=== PATIENT | male | born 1980 | race Caucasian/White ===

== ENCOUNTER 2016-12-16 20:20 | Inpatient (IN) | payer BC ==
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
[2016-12-17] MEDS ORDERED: ACETAMINOPHEN TAB 325 MG TAB PO PRN (01:31)
[2016-12-17] MEDS ORDERED: MAGNESIUM HYDROXIDE 2,400 MG/10 ML CUP PO PRN (01:31)
[2016-12-17] MEDS ORDERED: LORazepam 1 MG TAB PO PRN ×2 (01:31→01:33)
[2016-12-17] MEDS ORDERED: MAG HYDROX/AL HYDROX/SIMETH 30 ML CUP PO PRN (01:31)
[2016-12-17] MEDS ORDERED: ZIPRASIDONE 20 MG VIAL IM PRN (01:31)
[2016-12-17 02:01] VITALS: BMI 23.3
--- NOTE | 2016-12-17 14:41 | P.MDCNMH ---
History of Present Illness H&P Date: 12/17/16 Patient was not available for evaluation today. We will retry for tomorrow. Past Medical History Past Medical History: No Reported History History of Any Multi-Drug Resistant Organisms: None Reported Past Surgical History: No Surgical Hx Reported Smoking Status: Never smoker Medications and Allergies Home Medications Medication Instructions Recorded Confirmed Type Citalopram Hydrobromide [CeleXA] 20 mg PO DAILY 12/16/16 12/17/16 History Allergies Allergy/AdvReac Type Severity Reaction Status Date / Time codeine AdvReac Nausea & Verified 12/17/16 02:01 Vomiting Physical Exam Vitals: Vital Signs Temp Pulse Pulse Resp BP BP Pulse Ox 12/17/16 01:49 97.7 F 98 16 126/77 12/17/16 00:26 97.9 F 68 16 118/68 99 12/16/16 20:28 98.5 F 118 H 18 125/72 98 Intake and Output 12/16/16 12/17/16 12/17/16 22:59 06:59 14:59 Other: Weight 79.379 kg 78 kg Gen: This is a [ ] HEENT: Head is atraumatic, normocephalic. Pupils equal, round. Sclerae is anicteric. NECK: Supple. No JVD. No lymphadenopathy. No thyromegaly. LUNGS: Clear to auscultation. No wheezes or rhonchi. No intercostal retractions. HEART: Regular rate and rhythm. No murmur. ABDOMEN: Soft. Bowel sounds are present. No masses. No tenderness. EXTREMITIES: No pedal edema. No calf tenderness. NEUROLOGICAL: Patient is awake, alert and oriented x3. Cranial nerves 2 through 12 are grossly intact. Cranial Nerve Examination - Cranial Nerves Cranial Nerve II- Optic: Intact Cranial Nerve III- Oculomotor: Intact Cranial Nerve IV- Trochlear: Intact Cranial Nerve V- Trigeminal: Intact Cranial Nerve - Abducens: Intact Cranial Nerve VII- Facial: Intact Cranial Nerve VIII- Auditory: Intact Cranial Nerve IX- Glossopharyngeal: Intact Cranial Nerve X- Vagus: Intact Cranial Nerve XI- Accessory: Intact Cranial Nerve XII- Hypoglossal: Intact Assessment and Plan Plan: 1.[ ]. 2. [ ]. 3. [ ]. 4. [ ]. 5. [ ]. 6. [ ]. 7. [ ]. Impression and plan of care have been directed as dictated by the signing physician. Carol Mobley nurse practitioner acting as scribe for signing physician.
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
[2016-12-17] MEDS ORDERED: MELATONIN 5 MG TABLET PO SCH (21:00)
[2016-12-18 06:32] VITALS: BP 111/58; PULSE 73; RESP 16; TEMP 97.4
[2016-12-18] MEDS ORDERED: FLUoxetine HCL 10 MG CAP PO SCH (09:00)
[2016-12-18 09:15] LABS: Basophils # (A) 0.1 k/uL (0-0.2); Basophils % (A) 1 %; CH 31.7; CHCM 35.4; Eosinophils # (A) 0.3 k/uL (0-0.7); Eosinophils % (A) 4 %; HCT 46.4 % (39.0-53.0); HDW 3.11; HGB 15.7 gm/dL (13.0-17.5); Luc # (Auto) 0.33; Luc % (Auto) 4; Lymphocytes # (A) 2.3 k/uL (1.0-4.8); Lymphocytes % (A) 29 %; MCH 30.5 pg (25.0-35.0); MCHC 33.8 g/dL (31.0-37.0); MCV 90.3 fL (80.0-100.0); Mean Platelet Volume 7.4; Monocytes # (A) 0.4 k/uL (0-1.0); Monocytes % (A) 5 %; Neutrophils # (A) 4.5 k/uL (1.3-7.7); Neutrophils % (A) 57 %; RBC 5.14 m/uL (4.30-5.90); RDW 14.7 % (11.5-15.5); WBC (Perox) 7.44
[2016-12-18 10:05] LABS: ALT 68 U/L (21-72); AST 35 U/L (17-59); Alkaline Phosphatase 111 U/L (38-126); Anion Gap 10 mmol/L; Blood Urea Nitrogen 11 mg/dL (9-20); Calcium 9.2 mg/dL (8.4-10.2); Carbon Dioxide 28 mmol/L (22-30); Chloride 102 mmol/L (98-107); Glucose 83 mg/dL (74-99); Non-African American GFR(MDRD) >60 (>60 ml/min/1.73 sqM); Potassium 4.4 mmol/L (3.5-5.1); Sodium 140 mmol/L (137-145); Total Bilirubin 0.6 mg/dL (0.2-1.3)
--- NOTE | 2016-12-18 11:32 | P.DS ---
Providers Date of admission: 12/17/16 00:50 Expected date of discharge: 12/18/16 Attending physician: Luz Maria Martinez MD Consults: 12/17/16 01:31 Consult Physician Routine Consulting Provider: Ivan Marquez Reason/Comments: h and p, eval and tx, r/o metabolic disorder Do you want consulting provider notified?: Yes, Notify in am Primary care physician: Sherwin Mcgowan [place] Hospital Course: Discharge Diagnoses: Major depressive disorder, single episode moderate severity Reason for Admission: Patient is a 36-year-old male who was brought to the hospital on a petition by the police stating that he was video speaking with his partner and held a knife to his throat. He also had made statements that he was going to kill her boyfriend. Patient stated that he had had a half of a fifth of alcohol yesterday after returning from work and did get on a video call with his partner and did hold a knife to his throat but stated today that he wasn't sure he was going to act and that he did not want to . He states that he had been researching on Facebook whether she had been in contact with the gentleman she had had a relationship with in the past, he noticed that she was still in contact with him and so made the video call to her. Patient states that he was pissed off but would never kill anyone or act on those thoughts as he was aware of the consequences. He states he was angry and seeking revenge. He and his partner been together for 9 years and a month ago she moved out as they were having many verbal fights over the gentleman that she had begun to see. He states that he thought they were working things out but last week when he discovered that they were still in contact with each other. Patient states that about a month ago he had sought treatment with his primary care physician to restart Celexa as he was feeling irritable and sad. He states that he started the Celexa but began feeling extremely tired after work and so stopped the medication 3-4 days prior to coming into the hospital. Patient states that he had been on Celexa in 2011 when he was in a dark place after his mother's and at that time he responded well to the medication without side effects. Patient had reports no prior suicidal ideation and no prior suicide attempts. Patient reports no history of alcohol use or drug use and states he never uses alcohol or drugs and that was the first time he had been drinking that heavily and was intoxicated when he made the above call to his partner and his statements about killing himself and her boyfriend. Hospital Course: Patient was admitted and placed on routine precautions, routine laboratory studies were ordered, medical consultation was requested and group and activity therapy were ordered. Patient was seen and he reported that he was embarrassed by having made the video call and holding a knife to his throat and states that he was intoxicated at the time and has no intention to hurt himself. He reported he was angry that his partner had continued her relationship and had been lying to him about it and states that he has no intention to harm him or go after him. Patient reported that he has been feeling irritable, sad and had not been having any suicidal ideation prior to using the alcohol on the evening of admission. Patient reported that he was doing well at work and had no difficulties at work and after a visit from his partner on the inpatient unit stated that he was now ending their relationship as she was unable to assure him that she would end her affair. Patient and I discussed getting another antidepressant and he was started on Prozac 10 mg in the morning. Patient was also given melatonin 5 mg at bedtime to assist with his sleep. Patient was open to seeing a counselor and psychiatric follow-up care after discharge and reported he was eager to return to work. Patient states he will return home to live on his own, his 3 children are living with his partner (their mother). Patient's laboratory studies revealed no significant abnormalities. Discharge Mental Status:Appearance/Attitude: Patient is neatly and appropriately dressed and makes good eye contact and is cooperative. Behavior: Patient did not display any psychomotor agitation or retardation. Speech/Language: Patient's speech is spontaneous and of normal volume and rhythm and he is coherent. Thought Process: Patient was goal-directed and there is no evidence of any circumstantial or tangential thought and no loose associations or flight of ideas. Thought Content: Patient denies any auditory or visual hallucinations and no delusions or paranoid ideation were elicited. Patient states that he is ashamed of his video call and holding a knife to his throat as well as making threats to harm his partner's boyfriend. Patient states that he has ended the relationship with his partner and mother of his 3 children due to her inability to end her affair. He states he is interested in returning home and work. Patient states he is eating well and his sleep was restful last evening. Suicidal/Homicidal Ideation: Patient denied any current suicidal or homicidal ideation and states he never wanted to and was intoxicated when he made the statements on admission. Sensorium/Cognition: Patient is alert and oriented to person, place, and time and his memory is grossly intact. Mood/Affect: Patient's mood is sad and his affect is appropriate. Insight/Judgement: Patient's insight and judgment are fair. Laboratory Last Values WBC 8.0 k/uL (3.8-10.6) 12/18/16 08:21 RBC 5.14 m/uL (4.30-5.90) 12/18/16 08:21 Hgb 15.7 gm/dL (13.0-17.5) 12/18/16 08:21 Hct 46.4 % (39.0-53.0) 12/18/16 08:21 MCV 90.3 fL (80.0-100.0) 12/18/16 08:21 MCH 30.5 pg (25.0-35.0) 12/18/16 08:21 MCHC 33.8 g/dL (31.0-37.0) 12/18/16 08:21 RDW 14.7 % (11.5-15.5) 12/18/16 08:21 Plt Count 275 k/uL (150-450) 12/18/16 08:21 Neutrophils % 57 % 12/18/16 08:21 Lymphocytes % 29 % 12/18/16 08:21 Monocytes % 5 % 12/18/16 08:21 Eosinophils % 4 % 12/18/16 08:21 Basophils % 1 % 12/18/16 08:21 Neutrophils # 4.5 k/uL (1.3-7.7) 12/18/16 08:21 Lymphocytes # 2.3 k/uL (1.0-4.8) 12/18/16 08:21 Monocytes # 0.4 k/uL (0-1.0) 12/18/16 08:21 Eosinophils # 0.3 k/uL (0-0.7) 12/18/16 08:21 Basophils # 0.1 k/uL (0-0.2) 12/18/16 08:21 Sodium 140 mmol/L (137-145) 12/18/16 08:21 Potassium 4.4 mmol/L (3.5-5.1) 12/18/16 08:21 Chloride 102 mmol/L (98-107) 12/18/16 08:21 Carbon Dioxide 28 mmol/L (22-30) 12/18/16 08:21 Anion Gap 10 mmol/L 12/18/16 08:21 BUN 11 mg/dL (9-20) 12/18/16 08:21 Creatinine 0.96 mg/dL (0.66-1.25) 12/18/16 08:21 Est GFR (MDRD) Af Amer >60 (>60 ml/min/1.73 sqM) 12/18/16 08:21 Est GFR (MDRD) Non-Af >60 (>60 ml/min/1.73 sqM) 12/18/16 08:21 Glucose 83 mg/dL (74-99) 12/18/16 08:21 Calcium 9.2 mg/dL (8.4-10.2) 12/18/16 08:21 Total Bilirubin 0.6 mg/dL (0.2-1.3) 12/18/16 08:21 AST 35 U/L (17-59) 12/18/16 08:21 ALT 68 U/L (21-72) 12/18/16 08:21 Alkaline Phosphatase 111 U/L (38-126) 12/18/16 08:21 Total Protein 7.0 g/dL (6.3-8.2) 12/18/16 08:21 Albumin 4.1 g/dL (3.5-5.0) 12/18/16 08:21 TSH 1.780 mIU/L (0.465-4.680) 12/18/16 08:21 Urine Opiates Screen Not Detected (NotDetected) 12/16/16 20:15 Ur Oxycodone Screen Not Detected (NotDetected) 12/16/16 20:15 Urine Methadone Screen Not Detected (NotDetected) 12/16/16 20:15 Ur Propoxyphene Screen Not Detected (NotDetected) 12/16/16 20:15 Ur Barbiturates Screen Not Detected (NotDetected) 12/16/16 20:15 U Tricyclic Antidepress Not Detected (NotDetected) 12/16/16 20:15 Ur Phencyclidine Scrn Not Detected (NotDetected) 12/16/16 20:15 Ur Amphetamines Screen Not Detected (NotDetected) 12/16/16 20:15 U Methamphetamines Scrn Not Detected (NotDetected) 12/16/16 20:15 U Benzodiazepines Scrn Not Detected (NotDetected) 12/16/16 20:15 Urine Cocaine Screen Not Detected (NotDetected) 12/16/16 20:15 U Marijuana (THC) Screen Not Detected (NotDetected) 12/16/16 20:15 Risk Assessment: Patient's risk for self-harm/violence is low as he has never made any suicide attempts, has no prior history of violent behavior, does not use alcohol or drugs and is open to psychiatric care. Discharge Plan: Patient will be discharged to live in his home, his children are living with their mother. Patient will continue on Prozac 10 mg in the morning and I reviewed the use and side effects of the medication and should he have any adverse reactions to the medication to contact his follow-up clinic patient states that he will use [id number] melatonin to assist with his sleep and did not want a prescription for this. Patient states that he is eager to return to work and is agreeable to follow-up care to clinic. Patient will continue on 10 mg of Prozac in the morning and was given a prescription. Patient Condition at Discharge: Stable Plan - Discharge Summary New Discharge Prescriptions: New FLUoxetine HCL [PROzac] 10 mg PO DAILY #14 cap Melatonin 5 mg PO HS tab Discontinued Citalopram Hydrobromide [CeleXA] 20 mg PO DAILY Discharge Medication List FLUoxetine HCL [PROzac] 10 mg PO DAILY #14 cap 12/18/16 [Rx] Melatonin 5 mg PO HS tab 12/18/16 [Rx] Follow up Appointment(s)/Referral(s): [facility] [Outside] - 12/24/16 7:00 pm (Ivan Barakat) Sherwin Jamison MD [Primary Care Provider] - 1-2 days Discharge Disposition: HOME SELF-CARE
--- NOTE | 2016-12-18 15:34 | P.MDCNMH ---
History of Present Illness H&P Date: 12/18/16 This is a 36-year-old male patient of Dr. 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 Patient gives history that there was an argument with his girlfriend as she was cheating on him. They have been together for 9 years and have 3 children together. He was upset and at this time he denies any suicidal ideation. Patient was admitted to the mental health unit. TSH 1.70 0. Urine drug screen was negative. Patient denies any medical concerns. Review of Systems All systems: negative Constitutional: Denies chills, Denies fever Eyes: denies blurred vision, denies pain Ears, nose, mouth and throat: Denies headache, Denies sore throat Cardiovascular: Denies chest pain, Denies shortness of breath Respiratory: Denies cough Gastrointestinal: Denies abdominal pain, Denies diarrhea, Denies nausea, Denies vomiting Musculoskeletal: Denies myalgias Integumentary: Denies pruritus, Denies rash Neurological: Denies numbness, Denies weakness Psychiatric: Denies anxiety, Denies depression Endocrine: Denies fatigue, Denies weight change Past Medical History Past Medical History: No Reported History Additional Past Medical History / Comment(s): Congenital atrophy of the right leg status post reconstructive surgery for the ankles and also lengthening of the left leg History of Any Multi-Drug Resistant Organisms: None Reported Past Surgical History: No Surgical Hx Reported Additional Past Surgical History / Comment(s): Reconstructive ankle surgery and left leg corrective height as a child Smoking Status: Never smoker Additional Past Alcohol Use History / Comment(s): She is a nonsmoker. He denies any medical marijuana or marijuana, street drug or alcohol abuse. - Past Family History Father Additional Family Medical History / Comment(s): Father is alive at age 59 with history of drug addiction and alcohol abuse. Mother Additional Family Medical History / Comment(s): Mother at age 57 from lung cancer with history of bipolar disorder. Patient has one half brother, one half sister and one full sister that he does not have any contact with. Medications and Allergies Allergies Allergy/AdvReac Type Severity Reaction Status Date / Time codeine AdvReac Nausea & Verified 12/17/16 02:01 Vomiting Physical Exam Vitals: Vital Signs Temp Pulse Resp BP 08/17/17 06:30 97.4 F L 73 16 111/58 12/17/16 15:07 115 H 18 137/83 Gen: This is a 36-year-old male. He is very cooperative and appears to be in no acute distress. HEENT: Head is atraumatic, normocephalic. Pupils equal, round. Sclerae is anicteric. NECK: Supple. No JVD. No lymphadenopathy. No thyromegaly. LUNGS: Clear to auscultation. No wheezes or rhonchi. No intercostal retractions. HEART: Regular rate and rhythm. No murmur. ABDOMEN: Soft. Bowel sounds are present. No masses. No tenderness. EXTREMITIES: No pedal edema. No calf tenderness. NEUROLOGICAL: Patient is awake, alert and oriented x3. Cranial nerves 2 through 12 are grossly intact. Cranial Nerve Examination - Cranial Nerves Cranial Nerve II- Optic: Intact Cranial Nerve III- Oculomotor: Intact Cranial Nerve IV- Trochlear: Intact Cranial Nerve V- Trigeminal: Intact Cranial Nerve - Abducens: Intact Cranial Nerve VII- Facial: Intact Cranial Nerve VIII- Auditory: Intact Cranial Nerve IX- Glossopharyngeal: Intact Cranial Nerve X- Vagus: Intact Cranial Nerve XI- Accessory: Intact Cranial Nerve XII- Hypoglossal: Intact Results CBC & Chem 7: 12/18/16 08:21 12/18/16 08:21 Assessment and Plan Plan: 1. Depression. Patient admitted to the mental health unit. Continue current plan per psychiatrist. Impression and plan of care have been directed as dictated by the signing physician. Carol Mobley nurse practitioner acting as scribe for signing physician.
== END 2016-12-18 14:33 | disposition home or self-care (01) | DRG 885 ==
LOC: EC 20:20 → 3MHU 12-17 00:50
PROVIDERS: ADMIT Psychiatry & Neurology Psychiatry; ATTEND Psychiatry & Neurology Psychiatry
DX: F32.1 Major depressive disorder, single episode, moderate (principal); R45.850 Homicidal ideations; R45.851 Suicidal ideations; G47.9 Sleep disorder, unspecified; F41.9 Anxiety disorder, unspecified; Z79.899 Other long term (current) drug therapy; Z62.811 Personal history of psychological abuse in childhood; Z62.810 Personal history of physical and sexual abuse in childhood; Z87.891 Personal history of nicotine dependence; Z88.5 Allergy status to narcotic agent
CPT/HCPCS: 80053; 80306; 82075; 84443; 85025; 99284

== ENCOUNTER 2017-03-31 09:32 | Day surgery (SDC) | payer BC ==
[2017-03-24 15:19] VITALS: BMI 21.7
[~2017-03-31 09:32] MED LIST: DEXAMETHASONE SOD PHOSPHATE 10 MG/ML 1 ML VIAL IV ONE; HEPARIN SODIUM,PORCINE 5,000 UNIT/ML 1 ML VIAL SQ ONE; HYDROmorphone 0.5 MG/0.5 ML SYRINGE IVP PRN; LACTATED RINGERS 1,000 ML IV SCH; MIDAZOLAM 2 MG/2 ML VIAL IV PRN; ONDANSETRON 4 MG/2 ML VIAL IVP ONE; ceFAZolin IN SWFI 2 GM/20 ML SYRINGE IVP ONE
--- NOTE | 2017-03-31 10:34 | P.GSHP ---
History of Present Illness H&P Date: 03/31/17 Chief Complaint: Cholelithiasis This is a 36-year-old male who presents today for laparoscopic cholecystectomy. Patient has had a recent hospital should for cholecystitis. He is found have gallstones. Past Medical History Past Medical History: No Reported History Additional Past Medical History / Comment(s): Congenital atrophy of the right leg status post reconstructive surgery for the ankles and also lengthening of the left leg History of Any Multi-Drug Resistant Organisms: None Reported Past Surgical History: Orthopedic Surgery Additional Past Surgical History / Comment(s): Reconstructive ankle surgery and left leg corrective height as a child Past Anesthesia/Blood Transfusion Reactions: No Reported Reaction Smoking Status: Never smoker - Past Family History Father Additional Family Medical History / Comment(s): Father is alive at age 59 with history of drug addiction and alcohol abuse. Mother Family Medical History: Cancer Additional Family Medical History / Comment(s): Mother at age 57 from lung cancer with history of bipolar disorder. Patient has one half brother, one half sister and one full sister that he does not have any contact with. Medications and Allergies Home Medications Medication Instructions Recorded Confirmed Type No Known Home Medications [No 03/24/17 03/24/17 History Known Home Medications] Allergies Allergy/AdvReac Type Severity Reaction Status Date / Time codeine AdvReac Nausea & Verified 03/24/17 15:15 Vomiting Surgical - Exam - General well developed, no distress - Eyes PERRL - ENT normal pinna - Neck no masses - Respiratory normal expansion - Cardiovascular Rhythm: regular - Abdomen Abdomen: soft, non tender Assessment and Plan Assessment: Lithiasis. We'll perform laparoscopic cholecystectomy.
[2017-03-31] MEDS ORDERED: LIDOCAINE 1% 20 ML VIAL (10MG/ML) FOR IV START INTRADERMA ONE (10:50)
[2017-03-31] MEDS ORDERED: KETOROLAC 30 MG/ML 1 ML VIAL ONE (10:56)
[2017-03-31] MEDS ORDERED: ROCURONIUM BROMIDE 10 MG/ML 10 ML VIAL IV ONE (10:56)
[2017-03-31] MEDS ORDERED: fentaNYL (PF) 50 MCG/ML 2 ML AMP ONE (10:56)
[2017-03-31] MEDS ORDERED: SUCCINYLCHOLINE CHLORIDE 100 MG/5 ML SYR IV ONE (10:56)
[2017-03-31] MEDS ORDERED: NEOSTIGMINE 1 MG/ML 10 ML VIAL ONE (10:56)
[2017-03-31] MEDS ORDERED: PROPOFOL 10 MG/ML 20 ML VIAL IV ONE (10:56)
[2017-03-31] MEDS ORDERED: MIDAZOLAM 2 MG/2 ML VIAL ONE (10:56)
[2017-03-31] MEDS ORDERED: GLYCOPYRROLATE 0.2 MG/ML 2 ML VIAL ONE (10:56)
[2017-03-31] MEDS ORDERED: LIDOCAINE 1% INJ 10MG/ML (20 ML MDV) ONE (10:56)
[2017-03-31] MEDS ORDERED: BUPIVACAIN-EPI 0.25%-1:200,000 30 ML VIAL SQ ONE ×2 (11:01→11:15)
--- NOTE | 2017-03-31 11:50 | P.OP ---
Date of Procedure: 03/31/17 Preoperative Diagnosis: Cholecystitis Cholelithiasis Postoperative Diagnosis: Cholecystitis Cholelithiasis Procedure(s) Performed: Laparoscopic cholecystectomy Anesthesia: KYLER Surgeon: Kishore Bernardo Estimated Blood Loss (ml): 5 Pathology: other (gAll bladder) Condition: stable Disposition: PACU Description of Procedure: The patient was placed on the operating table. The patient received a general endotracheal tube anesthesia. The patients abdomen was prepped and draped in the usual sterile fashion. Through an infraumbilical stab incision, the fascia of the anterior abdominal wall was grasped with a pair of Kochers and then the Veress needle was placed in the peritoneal cavity. Position of the Veress needle was confirmed with positive drop test. The abdomen was then insufflated. After adequate insufflation, the 10 mm trocar was placed in the peritoneal cavity. Following this the laparoscope was placed in the peritoneal cavity. The patient was placed in the head-up, right side up position and then a 5 mm trocar was placed in the right lateral and right subcostal position under direct visualization. A 8 mm trocar was placed in the epigastric position. The gallbladder was grasped in the fundus and infundibulum. Traction on the gallbladder was placed in the lateral and the cephalad positions. The triangle of Calot was visualized.. The cystic duct was bluntly dissected until the union of the cystic duct and common bile duct was seen. The cystic duct was then divided and sealed with the Harmonic scissors. A PDS Endoloop was then placed throughout the cystic duct stump. The cystic artery divided and sealed with the Harmonic scissors. The gallbladder was then removed from the liver bed using Harmonic scissors. The gallbladder was then extracted through the epigastric port site. Operative field was checked for any bleeding spots and Harmonic scissors was used to coagulate the liver bed. The abdomen was irrigated. The trocars were removed. The skin was closed using interrupted 3-0 Vicryl suture. Dermabond dressing were applied. The patient tolerated the procedure well.
[2017-03-31 12:04] VITALS: TEMP 99
[2017-03-31] MEDS ORDERED: LACTATED RINGERS 1,000 ML IV ONE ×2 (12:11→13:10)
[2017-03-31 13:18] VITALS: RESP 18
[2017-03-31 13:34] VITALS: BP 123/67; PULSE 87
== END 2017-03-31 13:55 | disposition home or self-care (01) ==
LOC: OR 09:32
PROVIDERS: ATTEND Surgery
DX: K80.10 Calculus of gallbladder with chronic cholecystitis without obstruction (principal); R59.9 Enlarged lymph nodes, unspecified; Z80.1 Family history of malignant neoplasm of trachea, bronchus and lung; Z88.5 Allergy status to narcotic agent
CPT/HCPCS: 47562; J2250; J1644; J1100; J2710; J0690; J2405; J2001; J3010; J1885; J0330; J2704; 88304

== ENCOUNTER 2018-12-14 21:31 | Emergency (ER) | payer BC, OTHER ==
[2018-12-14 21:56] VITALS: PULSE 85; TEMP 98
[2018-12-14 22:28] LABS: Amphetamine Screen,Urine Not Detected (NotDetected); Barbiturate Screen,Urine Not Detected (NotDetected); Benzodiazepines Screen,Urine Not Detected (NotDetected); Cocaine Screen,Urine Not Detected (NotDetected); Methadone Screen, Urine Not Detected (NotDetected); Opiate Screen,Urine Not Detected (NotDetected); Oxycodone Screen, Urine Not Detected (NotDetected); Phencyclidine Screen,Urine Not Detected (NotDetected); Tricyclic Antidepressant,Urine Not Detected (NotDetected); Urn Cannabinoid Scrn Not Detected (NotDetected)
--- NOTE | 2018-12-14 22:35 | ED ---
Psych HPI - General Chief Complaint: Psychiatric Symptoms Stated Complaint: Mental health Time Seen by Provider: 12/14/18 21:58 Source: patient Mode of arrival: ambulatory - History of Present Illness Initial Comments: This patient is a 38-year-old man who presents to have Court ordered evaluation. The patient's had broken up with his partner of a number of years and reports t hat he did write her a suicide note, though he states he was not serious about this. The patient then probably a petition to have a quarter evaluation. The patient does admit to feeling sad that the relationship is over but states she is not feeling suicidal. MD Complaint: other Onset/Timin -: days(s) Associated Psychiatric Symptoms: depression History of same: Yes (3 years ago) Improves With: none Worsens With: none Context: significant life stressor Associated Symptoms: denies other symptoms - Related Data Home Medications Medication Instructions Recorded Confirmed No Known Home Medications 12/14/18 12/14/18 Allergies Allergy/AdvReac Type Severity Reaction Status Date / Time codeine AdvReac Nausea & Verified 12/14/18 22:40 Vomiting Review of Systems ROS Statement: Those systems with pertinent positive or pertinent negative responses have been documented in the HPI. ROS Other: All systems not noted in ROS Statement are negative. Constitutional: Denies: fever Respiratory: Denies: cough, dyspnea Cardiovascular: Denies: chest pain, palpitations Gastrointestinal: Denies: abdominal pain, vomiting Neurological: Denies: headache Psychiatric: Reports: as per HPI. 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 Mother Family Medical History: Cancer Additional Family Medical History / Comment(s): Mother at age 57 from lung cancer with history of bipolar disorder. Patient has one half brother, one half sister and one full sister that he does not have any contact with. General Exam Limitations: no limitations General appearance: alert, in no apparent distress Head exam: Present: atraumatic, normocephalic Eye exam: Present: normal appearance. Absent: scleral icterus, conjunctival injection Respiratory exam: Present: normal lung sounds bilaterally. Absent: respiratory distress, wheezes, rales, rhonchi, stridor Cardiovascular Exam: Present: regular rate, normal rhythm, normal heart sounds. Absent: systolic murmur, diastolic murmur, rubs, gallop GI/Abdominal exam: Present: soft. Absent: distended, tenderness, guarding, rebound, rigid, mass Neurological exam: Present: alert, normal gait Psychiatric exam: Present: normal mood. Absent: agitated, anxious, flat affect, manic, homicidal ideation, suicidal ideation Skin exam: Present: warm, dry, intact, normal color. Absent: rash Course Vital Signs 12/14/18 12/15/18 12/15/18 21:53 06:41 09:05 Temperature 98 F 98 F Pulse Rate 85 85 85 Respiratory 16 17 17 Rate Blood Pressure 137/87 116/77 116/77 O2 Sat by Pulse 97 98 98 Oximetry Medical Decision Making - Lab Data Lab Results 12/14/18 Range/Units 22:05 Urine Opiates Screen Not Detected (NotDetected) Ur Oxycodone Screen Not Detected (NotDetected) Urine Methadone Screen Not Detected (NotDetected) Ur Propoxyphene Screen Not Detected (NotDetected) Ur Barbiturates Screen Not Detected (NotDetected) U Tricyclic Antidepress Not Detected (NotDetected) Ur Phencyclidine Scrn Not Detected (NotDetected) Ur Amphetamines Screen Not Detected (NotDetected) U Methamphetamines Scrn Not Detected (NotDetected) U Benzodiazepines Scrn Not Detected (NotDetected) Urine Cocaine Screen Not Detected (NotDetected) U Marijuana (THC) Screen Not Detected (NotDetected) Disposition Clinical Impression: Mood disorder Disposition: TRANSFER TO PSYCH HOSP/UNIT Condition: Fair Is patient prescribed a controlled substance at d/c from ED?: No Referrals: Sherwin Jamison MD [Primary Care Provider] - 1-2 days
[2018-12-15 06:44] VITALS: BP 116/77; RESP 17
== END 2018-12-15 10:03 ==
LOC: EC 21:31
DX: F31.30 Bipolar disorder, current episode depressed, mild or moderate severity, unspecified (principal); Z63.79 Other stressful life events affecting family and household; Z88.5 Allergy status to narcotic agent; Z81.8 Family history of other mental and behavioral disorders
CPT/HCPCS: 80306; 82075; 99284